=== PATIENT | male | born 1940 | race Asian ===

== ENCOUNTER 2021-10-28 08:29 | Outpatient (CLI) | payer MEDICARE, SELFPAY ==
--- NOTE | 2021-10-28 | EST_ITS ---
Patient Info Name: Martha Fermin Age: 81 years : 1940 Gender: Male Ht: 67 in Wt: 170 lbs BSA: 1.92 m2 Exam Date: 10/28/2021 11:07 AM Exam Location: [facility] Stress Patient Status: Outpatient Admit Date: 10/28/2021 Staff Ordering Physician: David Fermin MD Attending Provider: David Fermin MD Exercise Technologist: Eun Noble RDCS Exercise Physician: Sagar Vanessa DO Exam Type: CA stress trinity w NM Study Info Indications R07.9 - Chest pain, unspecified A regadenoson stress test was performed. Summary 1. 1. Negative lexiscan stress test for ischemic ST changes by ECG criteria. 2. 2. Baseline hypertension. 3. 3. Nuclear scan to follow and will be reported separately. Please correlate with it. 4. 4. Patient informed of the above results. Protocol: Lexiscan Stress ECG Details Stage: REST Duration (min): 1 min : 49 sec HR (bpm): 65 SBP (mmHg): 164 DBP (mmHg): 86 Stage: REST Duration (min): 14 min : 17 sec HR (bpm): 70 SBP (mmHg): 164 DBP (mmHg): 86 Stage: STAGE 1 Duration (min): 1 min : 0 sec HR (bpm): 85 SBP (mmHg): 158 DBP (mmHg): 58 Stage: RECOVERY Duration (min): 1 min : 0 sec HR (bpm): 84 SBP (mmHg): 119 DBP (mmHg): 55 Stage: RECOVERY Duration (min): 2 min : 0 sec HR (bpm): 69 SBP (mmHg): 119 DBP (mmHg): 55 Stage: RECOVERY Duration (min): 3 min : 0 sec HR (bpm): 81 SBP (mmHg): 104 DBP (mmHg): 57 Stage: RECOVERY Duration (min): 4 min : 0 sec HR (bpm): 92 SBP (mmHg): 104 DBP (mmHg): 57 Stage: RECOVERY Duration (min): 5 min : 0 sec HR (bpm): 83 SBP (mmHg): 124 DBP (mmHg): 62 Stage: RECOVERY Duration (min): 6 min : 0 sec HR (bpm): 94 SBP (mmHg): 124 DBP (mmHg): 62 Stage: RECOVERY Duration (min): 6 min : 16 sec HR (bpm): 92 SBP (mmHg): 135 DBP (mmHg): 69 Rest HR: 70 bpm Peak HR: 94 bpm Rest Sys BP: 164 mmHg Peak Sys BP: 158 mmHg Max Pred HR: 141 bpm % Max Pred HR: 67 % Target HR: 120 bpm Max RPP: 14,852 bpm*mmHg Termination Reason: Completed protocol Cardiac Symptoms: Stomach discomfort Total Time: 1 min : 0 sec Rest Dixon BP: 86 mmHg Peak Dixon BP: 58 mmHg Total Dose: 0.4 mg Resting ECG Sinus rhythm, borderline ST-T wave abnormality in anterolat/inf leads. Stress ECG No ST changes. Arrhythmias None. Report Signatures
--- NOTE | 2021-10-28 | ECHO_ITS ---
Patient Info Name: Martha Fermin Age: 81 years : 1940 Gender: Male Ht: 67 in Wt: 170 lbs BSA: 1.92 m2 HR: 76 bpm BP: 158 / 89 mmHg Technical Quality: Good Exam Date: 10/28/2021 9:23 AM Exam Location: [facility] Patient Status: Outpatient Admit Date: 10/28/2021 Staff Ordering Physician: David Fermin MD Audio Recording Engineer: Eric Gambino RDCS, RT Attending Provider: David Fermin MD Referring Physician: Zander COUGHLIN; Exam Type: CA echo doppler color flow Study Info Indications R07.9 - Chest pain, unspecified Complete two-dimensional, color flow and Doppler transthoracic echocardiogram is performed. Strain analysis performed. Summary 1. Complete two-dimensional, color flow and Doppler transthoracic echocardiogram is performed. 2. Left ventricular chamber dimension is normal. 3. Left ventricular systolic function is normal, estimated at 60-65%. 4. There is mildly increased left ventricular wall thickness. 5. The left ventricular diastolic function is grade I diastolic dysfunction. 6. E/e' 21 is elevated. 7. Global longitudinal strain is normal at -19.1%. 8. There is trace aortic valve regurgitation. 9. The mitral valve has mildly thickened leaflets. 10. There is trace mitral valve regurgitation. 11. There is mild to moderate tricuspid valve regurgitation. 12. Severe pulmonary hypertension, estimated pulmonary arterial systolic pressure is 61 mmHg. 13. There is mild pulmonic regurgitation. Left Ventricle E/e' 21 is elevated. Global longitudinal strain is normal at -19.1%. Left ventricular chamber dimension is normal. Left ventricular systolic function is normal, estimated at 60-65%. There is mildly increased left ventricular wall thickness. The left ventricular diastolic function is grade I diastolic dysfunction. Right Ventricle Right ventricular systolic function is normal and with normal TAPSE 2.1 cm. Right ventricular chamber dimension is normal. Left Atria Left atrial chamber dimension is normal. Right Atria Right atrial chamber dimension is normal. Aortic Valve The aortic valve is trileaflet. There is no aortic valve stenosis. There is trace aortic valve regurgitation. Pulmonic Valve There is mild pulmonic regurgitation. Mitral Valve The mitral valve has mildly thickened leaflets. There is no mitral valve stenosis. There is trace mitral valve regurgitation. Tricuspid Valve There is mild to moderate tricuspid valve regurgitation. Severe pulmonary hypertension, estimated pulmonary arterial systolic pressure is 61 mmHg. Pericardium/Pleural There is no pericardial effusion. Inferior Vena Cava Normal inferior vena cava with >50% collapse upon inspiration consistent with normal right atrial pressure, 5 mmHg. Aorta The aortic root size at the sinus of Valsalva is normal. Left Ventricular Outflow Tract Name Value Normal LVOT 2D LVOT Diameter 2.0 cm LVOT Doppler LVOT Peak Gradient 4 mmHg LVOT Mean Gradient 2 mmHg LVOT VTI 29 cm LVOT VTI/AV VTI Ratio
--- NOTE | ~2021-10-28 | XR_ITS ---
XR chest 2V 10/28/2021 10:05 Indication: Generalized chest pain Procedure: 2 views chest Comparison: No prior studies for comparison. Findings: Cardiomegaly. Bibasilar atelectasis. No focal pneumonia, edema, pleural effusion or pneumot horax. Impression: 1: Bibasilar atelectasis. 2: Cardiomegaly. Reviewed, dictated and finalized at location B. Impression: 1: Bibasilar atelectasis. 2: Cardiomegaly.
--- NOTE | ~2021-10-28 | NM_ITS ---
EXAMINATION: NM trinity stress w perfusion DATE: 10/28/2021 14:24 INDICATION: Chest pain TECHNIQUE: Rest images were obtained following intravenous administration of 10 mCi Tc99m tetrofosmin (Myoview). The patient was infused intravenously with Lexiscan (Regadenoson). Then, 30.8 mCi Tc99m t etrofosmin (Myoview) was administered intravenously, and stress images were obtained. Data was recons tructed into short axis and horizontal and vertical long axis SPECT images. Gated SPECT images were a lso obtained. COMPARISON: None. FINDINGS: There is a mild perfusion defect involving the apical lateral, mid anterolateral and mid in ferolateral segments on both stress and rest images consistent with infarct but which appears partial ly reversible on rest images consistent with superimposed ischemia in the apical lateral and mid ante rolateral segments. There is normal left ventricular chamber size, wall motion and ejection fraction . Left ventricular ejection fraction measures >70%. IMPRESSION: 1. 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 2. Left ventricular ejection fraction measuring %. Reviewed, dictated and finalized at location A. IMPRESSION: 1. 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 2. Left ventricular ejection fraction measuring %.
== END 2021-10-28 08:30 | disposition home or self-care (01) ==
LOC: ANHCARD 08:32
PROVIDERS: Visit Provider Emergency Medicine
DX: R07.9 Chest pain, unspecified (principal); I95.1 Orthostatic hypotension; J98.11 Atelectasis; I51.7 Cardiomegaly
CPT/HCPCS: 71046; 78452; 93017; 93306; A9502; J2785

== ENCOUNTER 2022-12-26 08:46 | Outpatient (CLI) | payer MEDICARE, SELFPAY ==
--- NOTE | 2022-12-26 | ECHO_ITS ---
Patient Info Name: Martha Fermin Age: 82 years : 1940 Gender: Male Ht: 67 in Wt: 167 lbs BSA: 1.91 m2 HR: 67 bpm BP: 132 / 67 mmHg Heart Rhythm: Sinus Rhythm Exam Date: 12/26/2022 9:37 AM Exam Location: [facility] Patient Status: Outpatient Admit Date: 12/26/2022 Staff Ordering Physician: Neema, Chelle Doran NP Bench Technician: Antonella Morejon RDCS Attending Provider: Neema, Chelle Doran NP Referring Physician: Neema WALSH; Exam Type: CA echo doppler color flow Study Info Indications R06.09 - Other forms of dyspnea Complete two-dimensional, color flow and Doppler transthoracic echocardiogram is performed. Summary 1. Complete two-dimensional, color flow and Doppler transthoracic echocardiogram is performed. 2. Left ventricular chamber dimension is normal. 3. Left ventricular systolic function is normal, estimated at 65-70%. 4. There is mildly increased left ventricular wall thickness. 5. The left ventricular diastolic function is grade I diastolic dysfunction. 6. Left atrial chamber dimension is mildly enlarged. 7. The mitral valve has thickened leaflets. 8. There is mild mitral valve regurgitation. 9. There is mild tricuspid valve regurgitation. 10. Moderate pulmonary hypertension, estimated pulmonary arterial systolic pressure is 46 mmHg. 11. There is mild pulmonic regurgitation. Left Ventricle Left ventricular chamber dimension is normal. Left ventricular systolic function is normal, estimated at 65-70%. There is mildly increased left ventricular wall thickness. The left ventricular diastolic function is grade I diastolic dysfunction. Right Ventricle Right ventricular chamber dimension is normal. Right ventricular systolic function is normal. Left Atria Left atrial chamber dimension is mildly enlarged. Right Atria Right atrial chamber dimension is normal. Atrial Septum Intact interatrial septum visualized by color flow imaging. Aortic Valve The aortic valve is trileaflet. There is mild aortic valve sclerosis. There is no aortic valve stenosis. There is trace aortic valve regurgitation. Pulmonic Valve The pulmonic valve is normal. There is no pulmonic valve stenosis. There is mild pulmonic regurgitation. Mitral Valve The mitral valve has thickened leaflets. There is no mitral valve stenosis. There is mild mitral valve regurgitation. Tricuspid Valve The tricuspid valve leaflets are normal. There is no significant tricuspid valve stenosis. There is mild tricuspid valve regurgitation. Moderate pulmonary hypertension, estimated pulmonary arterial systolic pressure is 46 mmHg. Pericardium/Pleural The pericardium appears normal. There is no pericardial effusion. Inferior Vena Cava Normal inferior vena cava with >50% collapse upon inspiration consistent with elevated right atrial pressure, 10 mmHg. Aorta The aortic root size at the sinus of Valsalva is normal. The prox ascending aorta size is normal. Left Ventricular Outflow Tract Name Value Normal LVOT 2D LVOT Diameter 1.8 cm LVOT Doppler LVOT Peak Gradient 6 mmHg LVOT Mean Gradient 3 mmHg LVOT VTI 31 cm
== END 2022-12-26 08:47 | disposition home or self-care (01) ==
PROVIDERS: Visit Provider Nurse Practitioner Adult Health
DX: R06.01 Orthopnea (principal); R06.00 Dyspnea, unspecified; I25.118 Atherosclerotic heart disease of native coronary artery with other forms of angina pectoris; I08.3 Combined rheumatic disorders of mitral, aortic and tricuspid valves
CPT/HCPCS: 93306

== ENCOUNTER 2022-12-27 08:53 | Outpatient (CLI) | payer MEDICARE, SELFPAY ==
--- NOTE | 2023-01-11 11:06 | WPDSLEEPSTUD ---
Sleep Study Date of Study: 12/27/22 Ordering Provider: David Fermin MD Interpreting Physician: Adrianne Gill MD Sleep Study Type: CPAP Titration Height: 1.7 m Weight: 75.75 kg Body Mass Index: 26.2 Neck Circumference (inches): 14.5 [place]: 3 Reason for Sleep Study Has central sleep apnea, using CPAP * 05/17/2019, home sleep test, severe apnea, large number of mixed and central apneas. Sleep History Zander Wolff is an 82-year-old man with central sleep apnea currently using CPAP. He has shortness of breath. He occasionally awakens from sleep feeling short of breath. He rarely awakens at night with heartburn, belching or coughing. He occasionally snores and occasionally it is loud enough that others complain about it. He rarely has trouble sleeping with a cold. He does not have breathing problems at night observed by others. He does not sweat excessively at night. He occasionally notices his heart pounding or beating irregularly at night. He occasionally falls asleep during the day, never falls asleep involuntarily or while driving. He does not have loss of muscle tone with strong emotion. He does not have daytime difficulties due to excessive sleepiness. He does not feel paralyzed on waking or falling asleep. He occasionally has vivid dreamlike scenes upon awakening or falling asleep. He does not feel afraid to go to sleep. He rarely has nightmares. He does not have dream recall. He rarely has racing thoughts. He does not feel sad or depressed. He does not have anxiety. He occasionally has muscular tension. He occasionally notices parts of his body jerking. He occasionally kicks at night. He rarely has crawling and aching feelings in his legs. He occasionally has leg pain during the night. He does not have morning jaw pain. He does not grind his teeth during sleep. He occasionally is bothered by pain during the day. He rarely wakes up feeling stiff in the morning with sore achy muscles. He occasionally wakes up with pain in the neck and spine. Normal bedtime is Between 10:00 p.m. and 11:00 p.m., falling asleep within 10-20 minutes. He will usually awaken between 4 and 5 times during the night. These occur in the middle of the night. It may take him 10-15 minutes to return to sleep. His wake-up time is between 6:00 a.m. and 7:00 a.m.. He keeps the same schedule on weekends. He estimates getting between 7 and 8 hours of sleep at night. He takes naps in the afternoon or evening. A short nap lasting 10 or 15 minutes may be refreshing. He feels better in the afternoon compared to other times of day. Habits: Never smoked tobacco. He does drink caffeine. No alcohol or recreational substances. [facility] Past Medical History Medical History (Updated 01/11/23 @ 11:33 by Adrianne Gill MD) Acid reflux Central sleep apnea Coronary artery disease Mixed hyperlipidemia Surgical History Surgical History (Updated 01/11/23 @ 11:15 by Adrianne Gill MD) History of back surgery History of knee replacement Family History Family History (Updated 01/11/23 @ 11:15 by Adrianne Gill MD) Father , Age 77 CHF (congestive heart failure) Social History Social History (Updated 01/11/23 @ 11:16 by Adrianne Gill MD) Smoking status: Never smoker Alcohol intake: never Substance use: never Medications Medications: from his office note12/21/2022 fludrocortisone 0.1 mg daily minocycline 100 mg q.12 h ipratropium bromide 42 mcg 0.06% nasal spray 2 sprays t.i.d. each nostril azelastine 0.15% 1 spray each nostril b.i.d. tadalafil 5 mg daily oxybutynin chloride 5 mg b.i.d. modafinil 100 mg daily Sleep Procedure This test was performed using the [employer] multiple channel system including EOG, EEG, submental EMG, EKG, nasal and oral airflow using thermistors and nasal pressure sensors, chest and abdominal belts for body position data, and pulse oximetry. Video monitoring
[2023-01-11 11:36] VITALS: BMI 26.2
== END 2022-12-28 07:51 | disposition home or self-care (01) ==
LOC: ANHCSM 08:54
PROVIDERS: Visit Provider Emergency Medicine
DX: G47.33 Obstructive sleep apnea (adult) (pediatric) (principal); G47.61 Periodic limb movement disorder; E78.5 Hyperlipidemia, unspecified; I25.10 Atherosclerotic heart disease of native coronary artery without angina pectoris
CPT/HCPCS: 95811

== ENCOUNTER 2023-02-10 10:00 | Inpatient (IN) | payer MEDICARE, SELFPAY ==
[2023-02-10] VITALS (20 sets, daily range): BP systolic 78–140; BP diastolic 33–72; PULSE 72–92; RESP 16–25; TEMP 36.3–37; O2SAT 95–100; BMI 26.7
--- NOTE | ~2023-02-10 | XR_ITS ---
Portable chest x-ray Comparison: 10/28/2021 Clinical History: Dizziness Findings: Lungs are clear, without focal consolidation or pleural effusion. Cardiomediastinal silho uette is stable. Bones and soft tissues are unremarkable. Impression: Clear lungs. Reviewed, dictated and finalized at location . Impression: Clear lungs.
--- NOTE | 2023-02-10 10:02 | ECG_ITS ---
Measurements Intervals [place] Rate: 89 P: 52 PA: 126 QRS: 33 QRSD: 78 T: 31 QT: 361 QTc: 440 Interpretive Statements SINUS RHYTHM WITH OCCASIONAL SUPRAVENTRICULAR PREMATURE COMPLEXES MODERATE VOLTAGE CRITERIA FOR LVH, NONSPECIFIC ST & T-WAVE ABNORMALITY ABNORMAL ECG NO PREVIOUS ECG AVAILABLE FOR COMPARISON Electronically Signed On 02-10-2023 17:13:41 CDT by Percy Longoria M.D.
--- NOTE | 2023-02-10 10:13 | PC.NURSE ---
Pt refused orthostats until getting a pillow.
--- NOTE | 2023-02-10 10:23 | ED.DIZZY ---
HPI - Dizziness General Chief Complaint: Dizziness Stated Complaint: dizzy/SOB Time Seen by Provider: 02/10/23 10:03 Source: patient, family and EMS Mode of arrival: EMS Limitations: no limitations History of Present Illness HPI Narrative: 82 years old male came to the emergency room from home by ambulance complaining of shortness of breath and low blood pressure started yesterday morning. Gets better laying down flat, worse with standing or walking. He denies any chest pain, fever, chills, nausea, vomiting, back pain or abdominal pain. History of sleep apnea currently on CPAP, coronary artery disease, hyperlipidemia, GERD his is telling me that patient occasionally falls asleep during the day Related Data Home Medications Medication Instructions Recorded Confirmed aspirin 81 mg tablet 81 mg PO DAILY 02/10/23 02/10/23 naproxen 500 mg tablet 500 mg PO BID 02/10/23 02/10/23 rosuvastatin 40 mg tablet 40 mg PO DAILY 02/10/23 02/10/23 tadalafil 5 mg tablet 5 mg PO DAILY 02/10/23 02/10/23 Allergies Allergy/AdvReac Type Severity Reaction Status Date / Time Penicillins Allergy Rash Verified 02/10/23 10:33 Review of Systems Review of Systems: All systems reviewed & are unremarkable except as noted in HPI and below PMFSH Past Medical History Medical History (Updated 02/10/23 @ 19:19 by Ruth Ann Clayton MD) Acid reflux Acute blood loss anemia Central sleep apnea Coronary artery disease Mixed hyperlipidemia NSAID long-term use Orthostatic hypotension Surgical History Surgical History (Updated 01/11/23 @ 11:15 by Adrianne Gill MD) History of back surgery History of knee replacement Family History Family History (Updated 01/11/23 @ 11:15 by Adrianne Gill MD) Father , Age 77 CHF (congestive heart failure) Social History Social History (Updated 01/11/23 @ 11:16 by Adrianne Gill MD) Smoking status: Never smoker Alcohol intake: never Substance use: never Lack of Transportation: No Lack of Food: Never True Current Housing: I Have Housing Concerned About Future Housing: No Difficulty Paying Gas/Electric Bills: No Difficulty Paying for Meds: No Currently Unemployed: No Education: Decline to Answer Difficulty w/ Childcare or Family Care: No Spiritual care concerns: No Exam Narrative: General appearance: Well-developed, well-nourished Skin: Pale Head: Normocephalic, nontraumatic Eyes: Clear conjunctiva ENT: Oropharynx normal, ears normal, nose normal Neck: Supple, nontender Chest and respiratory: Airway patent, no respiratory distress, no accessory muscle use Heart: Regular rate/rhythm Abdomen: Soft, nontender, no organomegaly, quiet bowel sounds, rectal exam showed no stool in the rectal pouch, guaiac positive, no hemorrhoids, no mass or tenderness Vascular: Normal peripheral pulses, normal capillary refill. 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 Chau, agreed with the admission, will see the patient Monday. Date: 02/10/23 Consultation #2: Dr eden Antonio is the son of the patient, is telling me that patient hemoglobin on December 22 was 13.8. Patient is not on anticoagulant medication and currently on baby aspirin once a day. Patient used to be on naproxen for chronic back pain but has not taken it for a while. Date: 02/10/23 Vital Signs Vital signs: Vital Signs Temperature 36.6 C 02/10/23 10:06 Pulse Rate 81 02/10/23 10:06 Respiratory Rate 20 02/10/23 10:06 Blood Pressure 94/68 L 02/10/23 10:06 Pulse O
[2023-02-10] MEDS: SODIUM CHLORIDE 0.9% IV 2,300 ML/1,000 ML BAG 999 ML IV CONT ×3 (10:39→12:37)
[2023-02-10 11:11] LABS: Basophils Percent Auto 0.5 % (0.2-1.2); Eosinophils Percent Auto 0.7 % (0-4.4); Hematocrit 23.5 % (42.0-52.0); Hemoglobin 7.5 g/dL (14.0-18.0); Immature Granulocyte Absolute 0.01 K/mm3 (0.00-0.031); Immature Granulocyte Percent A 0.2 % (0-0.5); Lymphocytes Percent Auto 20.2 % (18.3-44.2); Mean Corpuscular HGB Conc 31.9 g/dl (32-36); Mean Corpuscular Hemoglobin 30.2 pg (26-34); Mean Corpuscular Volume 94.8 fl (80-100); Mean Platelet Volume 10.6 fl (7.4-10.4); Monocytes Absolute Auto 0.6 K/mm3 (0.1-0.6); Monocytes Percent Auto 9.3 % (2.6-8.5); Neutrophils Absolute Auto 4.1 K/mm3 (1.3-6.7); Neutrophils Percent Auto 69.1 % (45.5-73.1); Platelet Count Result 134 k/mm3 (150-375); Red Blood Count 2.48 M/mm3 (4.6-6.20); Red Cell Distribution Width 12.3 % (11.5-14.5); White Blood Count 5.9 K/mm3 (4.5-10.0)
[2023-02-10 11:21] LABS: Alanine Aminotransferase 24 U/L (6-50); Albumin Level 2.7 g/dL (3.5-5.1); Alkaline Phosphatase 45 U/L (38-126); Anion Gap 4 mmol/L (8-16); Aspartate Amino Transferase 29 U/L (17-59); Bilirubin,Total 0.6 mg/dL (0.2-1.3); Blood Urea Nitrogen 55 mg/dL (9-20); Calcium 7.2 mg/dL (8.4-10.2); Carbon Dioxide 24 mmol/L (22-30); Chloride 106 mmol/L (98-107); Estimated CRCL calculation 60 ml/min; Estimated Glomerular Filt Rate > 60; Glucose 99 mg/dL (65-110); INR 1.2; Lipase 53 U/L (23-300); Potassium 3.6 mmol/L (3.4-5.0); Sodium 134 mmol/L (137-145)
[2023-02-10 11:23] LABS: CRP < 0.5 mg/dL (<1.0)
[2023-02-10 11:32] LABS: Troponin I < 0.012 ng/mL (0.000-0.034)
[2023-02-10 11:39] LABS: Lactic Acid Reflex 1.6 mmol/L (0.7-2.0)
--- NOTE | 2023-02-10 12:00 | PC.NURSE ---
pt made aware of needing urine specimen. urinal at bedside. pt reports he will try and go.
[2023-02-10 12:14] LABS: Add Urine Microscopic? YES; Appearance Urine Clear (Clear); Bacteria Urine None Seen /hpf; Bilirubin Urine Negative (Negative); Blood Urine 1+ (Negative); Color Urine Yellow (Yellow); Glucose Urine UA Negative (Negative); Ketones Urine Negative (Negative); Leukocyte Esterase Ur Negative LEU/UL (Negative); Nitrate Urine Negative (Negative); Non Pathogenic Casts 0-2; Protein Urine Trace mg/dL (Negative); RBC Urine 0-2 /hpf (0-2); Specific Grav Ur 1.014 (1.001-1.035); Squamous Epithelial Cell Urine None seen /hpf (Few); Urobilinogen Urine 0.2 mg/dL (<2.0); WBC Urine 0-5 /hpf; pH Urine 5.5 (5.0-9.0)
[2023-02-10 13:03] LABS: Hematocrit 23.7 % (42.0-52.0); Hemoglobin 7.7 g/dL (14.0-18.0)
[2023-02-10] MEDS: PANTOPRAZOLE SODIUM IV 40 MG VIAL IV PUSH ×2 (13:04→20:01)
[2023-02-10 13:24] LABS: Troponin I < 0.012 ng/mL (0.000-0.034)
--- NOTE | 2023-02-10 13:50 | ADMGEN ---
This patient, Martha Fermin, was admitted to Medical Room 349-01. Patient/family oriented to hospital policies and general routines including ID bracelet, bed and alarms, visiting hours, pain management, procedures, bathroom and other care routines, personal items, smoking policy, room service/diet, and visiting hours. Information on how to activate the Rapid Response Team has been discussed. Patient/Family are encouraged to report perceived risks to care and to ask questions if they do not understand what they are told or what they should do.
[2023-02-10] MEDS: SODIUM CHLORIDE 0.9% IV 250 ML 30 ML IV CONT (14:21)
--- NOTE | 2023-02-10 14:29 | WPDGICN ---
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) use of non-steroidal anti-inflammatories (NSAID) Status: Acute Assessment and Plan: discontinue (3) Orthostatic hypotension: Code(s): I95.1 - Orthostatic hypotension Status: Acute Assessment and Plan: monitor ivf and protonix (4) Coronary artery disease: Code(s): I25.10 - Atherosclerotic heart disease of [place] coronary artery without angina pectoris Status: Acute GI Consult Note Consult date/time: 02/10/23 14:29 Reason for consult: symptomatic anemia HPI: Martha Fermin is a 82 year old male with history of HTN, CAD and knee/back pain for which has been taking naproxen daily for long time. He came to hospital with progressive shortness of breath on exertion, also dizziness upon standing and feeling lightheaded, his SBP was in the low side. Hgb 7.5, bun 55, creat 0.8. He never had egd, had colonoscopy probably more than 5 years ago. Denies obvious bleeding, no melena, no nausea. Review of Systems Constitutional: Constitutional: Reports fatigue and Reports lethargy Eyes: Eyes: Denies blurry vision ENT: Reports Normal hearing present Cardiovascular: Cardiovascular: Denies chest pain Respiratory: Respiratory: Reports dyspnea on exertion Gastrointestinal: Gastrointestinal: Denies nausea Genitourinary: Genitourinary: Denies urinary frequency Musculoskeletal: Musculoskeletal: Reports arthralgias Integumentary/Breasts: Skin/Breast: Denies rash Neurologic: Denies Abnormal speech present Psychiatric: Psychiatric: Denies behavioral changes [facility] Past Medical History Medical History (Updated 02/10/23 @ 14:33 by Efraín Luis MD) Acid reflux Acute blood loss anemia Central sleep apnea Coronary artery disease Mixed hyperlipidemia NSAID long-term use Orthostatic hypotension Surgical History Surgical History (Updated 01/11/23 @ 11:15 by Adrianne Gill MD) History of back surgery History of knee replacement Family History Family History (Updated 01/11/23 @ 11:15 by Adrianne Gill MD) Father , Age 77 CHF (congestive heart failure) Social History Social History (Updated 01/11/23 @ 11:16 by Adrianne Gill MD) Smoking status: Never smoker Alcohol intake: never Substance use: never Lack of Transportation: No Lack of Food: Never True Current Housing: I Have Housing Concerned About Future Housing: No Difficulty Paying Gas/Electric Bills: No Difficulty Paying for Meds: No Currently Unemployed: No Education: Decline to Answer Difficulty w/ Childcare or Family Care: No Spiritual care concerns: No Meds Home Medications and Allergies Home Medications Medication Instructions Recorded Confirmed Type aspirin 81 mg tablet 81 mg PO DAILY 02/10/23 02/10/23 History naproxen 500 mg tablet 500 mg PO BID 02/10/23 02/10/23 History rosuvastatin 40 mg tablet 40 mg PO DAILY 02/10/23 02/10/23 History tadalafil 5 mg tablet 5 mg PO DAILY 02/10/23 02/10/23 History Allergies Allergy/AdvReac Type Severity Reaction Status Date / Time Penicillins Allergy Rash Verified 02/10/23 10:33 Vital Signs Vital Signs - 24 hr 02/10/23 10:06 02/10/23 10:19 02/10/23 10:20 Temperature 97.8 F Pulse Rate 81 73 90 Respiratory Rate 20 Blood Pressure 94/68 L 103/48 L 94/70 L Pulse Oximetry 99 Oxygen Delivery Room Air 02/10/23 10:20 02/10/23 11:26 02/10/23 11:31 Temperature Pulse Rate 92 78 81 Respiratory Rate 25 H 17 Blood Pressure 78/47 L 122/49 L 114/46 L Pulse Oximetry 99 9
--- NOTE | 2023-02-10 17:46 | PM.IMHP ---
H&P: HPI History of Present Illness Date/Time: 02/10/23 17:46 Chief Complaint: Dizziness and shortness of breath. Narrative: This is an 82-year-old male patient who came to the emergency room with complaints of shortness of breath and low blood pressure. According to the the patient does have a history of having low blood pressure. The is at the bedside answering was the questions for me. The patient was feeling better whenever he would lay flat and worse with standing or walking. The patient also complained of some dizziness. He denies any chest pain fever chills nausea vomiting. Patient has chronic neck and back pain. He has a history of sleep apnea anemia. The patient does have a history obstructive sleep apnea and according to the he has been sleeping quite frequently some days all day. The stated that the patient has been having dark stools. The patient does have severe arthritis and body aches and he does take naproxen. His H&H was 7.5 and 23.5 upon admission. Repeat H&H was 10.7 and 23.7. GI has been consulted. The patient was ordered pantoprazole IV fluids and give a blood transfusion. Patient received 1 unit packed red blood cells. The plan is for EGD and colonoscopy on Monday. Chest x-ray was read as clear lungs clear. The patient is being admitted to inpatient status on the date of service of 02/10/2023. Review of Systems Review of Systems: All systems reviewed & are unremarkable except as noted in HPI and below Constitutional: Constitutional: Reports as per HPI and Reports no additional constitutional complaints Eyes: Eyes: Reports as per HPI and Reports no additional eye complaints ENT: Reports system reviewed and no additional complaints, except as documented and Reports Normal hearing present Cardiovascular: Cardiovascular: Reports no additional cardiovascular complaints Respiratory: Respiratory: Reports no additional respiratory complaints and Reports no additional respiratory complaints Gastrointestinal: Gastrointestinal: Reports as per HPI and Reports no additional gastrointestinal complaints Musculoskeletal: Musculoskeletal: Reports no additional musculoskeletal complaints Integumentary/Breasts: Skin/Breast: Reports system reviewed and no additional complaints, except as docu and Reports as per HPI Neurologic: Reports system reviewed and no additional complaints, except as documented, Reports as per HPI and Reports Normal hearing present Psychiatric: Psychiatric: Reports no additional psychiatric complaints and Reports as per HPI Endocrine: Endocrine: Reports no additional endocrine complaints Hematologic/Lymphatic: Hematologic/Lymphatic: Reports no additional hematologic/lymphatic complaints Allergic/Immunologic: Allergic/Immunologic: Reports no additional allergic/immunologic complaints PMFSH Past Medical History Medical History Acid reflux Acute blood loss anemia Central sleep apnea Coronary artery disease Mixed hyperlipidemia NSAID long-term use Orthostatic hypotension Surgical History Surgical History (Updated 02/10/23 @ 23:55 by Monica Nuñez NP) H/O cervical spine surgery History of back surgery History of knee replacement Family History Family History Father , Age 77 CHF (congestive heart failure) Social History Social History (Updated 02/10/23 @ 23:56 by Monica Nuñez NP) Social History: The patient lives with his and he has 1 son. 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 The patient is a lifelong nonsmoker. His is the durable power banking attorney for healthcare. Code status full code Smoking status: Never smoker Alcohol intake: never Substance use: never Lack of Transportation: No Lack of Food: Never True Current Housing: I Have Housing Concerned About Future Housing: No Difficulty Paying Gas/Electric
[2023-02-10] MEDS: SODIUM CHLORIDE 0.9% IV 1,000 ML 125 ML IV CONT (18:51)
[2023-02-10] MEDS: ACETAMINOPHEN 325 MG TABLET 650 MG PO (20:03)
[2023-02-10 20:34] LABS: Hematocrit 28.5 % (42.0-52.0)
[2023-02-11] VITALS (14 sets, daily range): BP systolic 94–117; BP diastolic 38–48; PULSE 67–91; RESP 16–20; TEMP 36.4–36.8; O2SAT 96–100
[2023-02-11 01:31] LABS: Hematocrit 25.6 % (42.0-52.0); Hemoglobin 8.4 g/dL (14.0-18.0)
[2023-02-11] MEDS: SODIUM CHLORIDE 0.9% IV 1,000 ML 125 ML IV CONT ×2 (03:05→20:44)
[2023-02-11] MEDS: ALBUTEROL SULFATE NEB 2.5 MG/3 ML INH INHALATION (03:33)
[2023-02-11 05:23] LABS: Basophils Percent Auto 0.4 % (0.2-1.2); Eosinophils Absolute Auto 0.1 K/mm3 (0-0.3); Eosinophils Percent Auto 1.4 % (0-4.4); Hematocrit 26.1 % (42.0-52.0); Hemoglobin 8.5 g/dL (14.0-18.0); Immature Granulocyte Absolute 0.01 K/mm3 (0.00-0.031); Immature Granulocyte Percent A 0.2 % (0-0.5); Lymphocytes Absolute Auto 1.19 K/mm3 (0.9-3.2); Lymphocytes Percent Auto 24.4 % (18.3-44.2); Mean Corpuscular HGB Conc 32.6 g/dl (32-36); Mean Corpuscular Hemoglobin 30.8 pg (26-34); Mean Corpuscular Volume 94.6 fl (80-100); Monocytes Absolute Auto 0.5 K/mm3 (0.1-0.6); Neutrophils Absolute Auto 3.1 K/mm3 (1.3-6.7); Neutrophils Percent Auto 63.6 % (45.5-73.1); Platelet Count Result 129 k/mm3 (150-375); Red Blood Count 2.76 M/mm3 (4.6-6.20); Red Cell Distribution Width 12.7 % (11.5-14.5); White Blood Count 4.9 K/mm3 (4.5-10.0)
[2023-02-11 05:35] LABS: Alanine Aminotransferase 28 U/L (6-50); Albumin Level 2.9 g/dL (3.5-5.1); Alkaline Phosphatase 46 U/L (38-126); Anion Gap 6 mmol/L (8-16); Aspartate Amino Transferase 41 U/L (17-59); Bilirubin,Total 1.1 mg/dL (0.2-1.3); Blood Urea Nitrogen 32 mg/dL (9-20); Calcium 7.4 mg/dL (8.4-10.2); Carbon Dioxide 21 mmol/L (22-30); Chloride 111 mmol/L (98-107); Estimated CRCL calculation 60 ml/min; Estimated Glomerular Filt Rate > 60; Glucose 99 mg/dL (65-110); Magnesium 2.1 mg/dL (1.6-2.3); Potassium 3.7 mmol/L (3.4-5.0); Sodium 138 mmol/L (137-145)
[2023-02-11] MEDS: PANTOPRAZOLE SODIUM IV 40 MG VIAL IV PUSH ×2 (08:31→20:30)
[2023-02-11] MEDS: ROSUVASTATIN 10 MG TABLET 40 MG PO (08:31)
[2023-02-11 12:00] LABS: Hematocrit 26.2 % (42.0-52.0); Hemoglobin 8.7 g/dL (14.0-18.0)
--- NOTE | 2023-02-11 13:00 | PM.IMPN ---
Progress Note: A&P Assessment and Plan (1) GI bleed: Qualifiers: GI bleed type/associated pathology: unspecified gastrointestinal hemorrhage type Qualified Code(s): K92.2 - Gastrointestinal hemorrhage, unspecified Code(s): K92.2 - Gastrointestinal hemorrhage, unspecified Status: Acute Assessment and Plan: -H&H every 6 hours. Pt has received 1 unit of pRBC this admission. Re-transfuse if Hgb < 7 g/dl -GI consulted. Plan for EGD and colonoscopy Monday. -Patient is constipated. last BM was three days ago. He said his stool was normal at the time. Will give stool softener/laxative. -Protonix 40 mg IVP BID -Avoid NSAIDs (2) Anemia: Qualifiers: Anemia type: unspecified type Qualified Code(s): D64.9 - Anemia, unspecified Code(s): D64.9 - Anemia, unspecified Status: Acute Assessment and Plan: No previous labs for comparison. H&H every 6 hours. - says his hemoglobin at his last office visit in December was 13. (3) Coronary artery disease: Code(s): I25.10 - Atherosclerotic heart disease of [place] coronary artery without angina pectoris Status: Acute Assessment and Plan: The patient has had a stress test in the past. And has been on an aspirin. Hold off on aspirin at this time -continue rosuvastatin (4) Orthostatic hypotension: Code(s): I95.1 - Orthostatic hypotension Status: Acute Assessment and Plan: Continue with orthostatic blood pressures every shift. (5) Obstructive sleep apnea: Code(s): G47.33 - Obstructive sleep apnea (adult) (pediatric) Status: Acute Assessment and Plan: Continue with CPAP machine. Subjective Date/time seen: 02/11/23 13:00 Interval history: This is an 82-year-old male patient who came to the emergency room with complaints of shortness of breath and low blood pressure.? According to the the patient does have a history of having low blood pressure.? The is at the bedside answering was the questions for me.? The patient was feeling better whenever he would lay flat and worse with standing or walking.? The patient also complained of some dizziness.? He denies any chest pain fever chills nausea vomiting.? Patient has chronic neck and back pain.? He has a history of sleep apnea anemia.? The patient does have a history obstructive sleep apnea and according to the he has been sleeping quite frequently some days all day.? The stated that the patient has been having dark stools.? The patient does have severe arthritis and body aches and he does take naproxen.? His H&H was 7.5 and 23.5 upon admission.? Repeat H&H was 10.7 and 23.7.? GI has been consulted.? The patient was ordered pantoprazole IV fluids and give a blood transfusion.? Patient received 1 unit packed red blood cells.? The plan is for EGD and colonoscopy on Monday.? Chest x-ray was read as clear lungs clear.? The patient is being admitted to inpatient status on the date of service of 02/10/2023. 02/11: Patient is seen today resting in bed with his at the bedside. He says that he has been feeling dizzy when sitting up so he prefers to lay down. His blood pressures have been soft but MAPs continue to be greater than 65. Hgb is stable at 8.7. He denies h/a, SOB, CP, N/V/D. He says that he has been constipated for three days and needs to use the restroom. He says that normal stool softeners usually don't work for him. Will write for a low dose of lactulose x 1. He also reports chronic issues with urination including impaired emptying, frequency, and dribbling. He is ready to go home because he does not like this hospital bed. I reviewed with him the prep for EGD and colonoscopy and hopes that he might be discharged Monday after his procedure assuming all testing is negative. Review of Systems Review of Systems: All systems reviewed & are unremarkable except as noted in HPI and below Exam Narrative: General: pale, wel
[2023-02-11] MEDS: LACTULOSE 20 GM/30 ML UDC 10 GM PO (13:52)
[2023-02-12] VITALS (16 sets, daily range): BP systolic 72–144; BP diastolic 36–60; PULSE 68–88; RESP 16–18; TEMP 36.6–36.8; O2SAT 97–99
[2023-02-12 05:39] LABS: Basophils Percent Auto 0.5 % (0.2-1.2); Eosinophils Absolute Auto 0.1 K/mm3 (0-0.3); Eosinophils Percent Auto 1.8 % (0-4.4); Hematocrit 28.1 % (42.0-52.0); Hemoglobin 8.5 g/dL (14.0-18.0); Immature Granulocyte Absolute 0.02 K/mm3 (0.00-0.031); Immature Granulocyte Percent A 0.5 % (0-0.5); Lymphocytes Absolute Auto 0.96 K/mm3 (0.9-3.2); Lymphocytes Percent Auto 21.8 % (18.3-44.2); Mean Corpuscular HGB Conc 30.2 g/dl (32-36); Mean Corpuscular Hemoglobin 30.2 pg (26-34); Mean Platelet Volume 10.6 fl (7.4-10.4); Monocytes Absolute Auto 0.5 K/mm3 (0.1-0.6); Monocytes Percent Auto 10.4 % (2.6-8.5); Neutrophils Absolute Auto 2.9 K/mm3 (1.3-6.7); Platelet Count Result 151 k/mm3 (150-375); Red Blood Count 2.81 M/mm3 (4.6-6.20); Red Cell Distribution Width 12.7 % (11.5-14.5); White Blood Count 4.4 K/mm3 (4.5-10.0)
[2023-02-12 05:48] LABS: INR 1.1; Prothrombin Time 15.1 Seconds (11.1-14.7)
[2023-02-12 05:49] LABS: Partial Thromboplastin Time 28.2 SECONDS (22.3-36.8)
[2023-02-12 05:55] LABS: Alanine Aminotransferase 41 U/L (6-50); Albumin Level 2.8 g/dL (3.5-5.1); Alkaline Phosphatase 34 U/L (38-126); Anion Gap 3 mmol/L (8-16); Aspartate Amino Transferase 56 U/L (17-59); Blood Urea Nitrogen 17 mg/dL (9-20); Calcium 7.5 mg/dL (8.4-10.2); Carbon Dioxide 24 mmol/L (22-30); Chloride 107 mmol/L (98-107); Estimated CRCL calculation 60 ml/min; Estimated Glomerular Filt Rate > 60; Glucose 101 mg/dL (65-110); Magnesium 2.2 mg/dL (1.6-2.3); Potassium 3.8 mmol/L (3.4-5.0); Sodium 134 mmol/L (137-145)
[2023-02-12] MEDS: PANTOPRAZOLE SODIUM IV 40 MG VIAL IV PUSH ×2 (08:17→21:44)
[2023-02-12] MEDS: SODIUM CHLORIDE 0.9% IV 1,000 ML 125 ML IV CONT (08:17)
[2023-02-12] MEDS: ROSUVASTATIN 10 MG TABLET 40 MG PO (08:18)
--- NOTE | 2023-02-12 09:32 | PM.IMPN ---
Progress Note: A&P Assessment and Plan (1) GI bleed: Qualifiers: GI bleed type/associated pathology: unspecified gastrointestinal hemorrhage type Qualified Code(s): K92.2 - Gastrointestinal hemorrhage, unspecified Code(s): K92.2 - Gastrointestinal hemorrhage, unspecified Status: Acute Assessment and Plan: -H&H daily now as hgb has been stable. Pt has received 1 unit of pRBC this admission. Re-transfuse if Hgb < 7 g/dl -GI consulted. Plan for EGD and colonoscopy Monday. -Patient is constipated. last BM was three days ago. He said his stool was normal at the time. Will give stool softener/laxative. -Protonix 40 mg IVP BID -Avoid NSAIDs (2) Anemia: Qualifiers: Anemia type: unspecified type Qualified Code(s): D64.9 - Anemia, unspecified Code(s): D64.9 - Anemia, unspecified Status: Acute Assessment and Plan: No previous labs for comparison. hgb stable - says his hemoglobin at his last office visit in December was 13. (3) Coronary artery disease: Code(s): I25.10 - Atherosclerotic heart disease of [place] coronary artery without angina pectoris Status: Acute Assessment and Plan: The patient has had a stress test in the past. And has been on an aspirin. Hold off on aspirin at this time -continue rosuvastatin (4) Orthostatic hypotension: Code(s): I95.1 - Orthostatic hypotension Status: Acute Assessment and Plan: Continue with orthostatic blood pressures every shift. Blood pressures continue to be soft 90-100/40's. Patient had some dizziness yesterday after eating breakfast but it improved with rest. He is not tachycardic. His Hgb remains stable. (5) Obstructive sleep apnea: Code(s): G47.33 - Obstructive sleep apnea (adult) (pediatric) Status: Acute Assessment and Plan: Continue with CPAP machine. Subjective Date/time seen: 02/12/23 09:32 Interval history: This is an 82-year-old male patient who came to the emergency room with complaints of shortness of breath and low blood pressure.? According to the the patient does have a history of having low blood pressure.? The is at the bedside answering was the questions for me.? The patient was feeling better whenever he would lay flat and worse with standing or walking.? The patient also complained of some dizziness.? He denies any chest pain fever chills nausea vomiting.? Patient has chronic neck and back pain.? He has a history of sleep apnea anemia.? The patient does have a history obstructive sleep apnea and according to the he has been sleeping quite frequently some days all day.? The stated that the patient has been having dark stools.? The patient does have severe arthritis and body aches and he does take naproxen.? His H&H was 7.5 and 23.5 upon admission.? Repeat H&H was 10.7 and 23.7.? GI has been consulted.? The patient was ordered pantoprazole IV fluids and give a blood transfusion.? Patient received 1 unit packed red blood cells.? The plan is for EGD and colonoscopy on Monday.? Chest x-ray was read as clear lungs clear.? The patient is being admitted to inpatient status on the date of service of 02/10/2023. 02/11: Patient is seen today resting in bed with his at the bedside. He says that he has been feeling dizzy when sitting up so he prefers to lay down. His blood pressures have been soft but MAPs continue to be greater than 65. Hgb is stable at 8.7. He denies h/a, SOB, CP, N/V/D. He says that he has been constipated for three days and needs to use the restroom. He says that normal stool softeners usually don't work for him. Will write for a low dose of lactulose x 1. He also reports chronic issues with urination including impaired emptying, frequency, and dribbling. He is ready to go home because he does not like this hospital bed. I reviewed with him the prep for EGD and colonoscopy and hopes that he might be discharged Monday after his procedure
[2023-02-12] MEDS: BISACODYL 5 MG TABLET EC 20 MG PO (19:03)
[2023-02-12] MEDS: polyethylene glycoL 3350 238 GM BOTTLE PO (19:03)
[2023-02-12 23:17] LABS: Hematocrit 27.6 % (42.0-52.0)
[2023-02-13] VITALS (18 sets, daily range): BP systolic 89–162; BP diastolic 41–82; PULSE 67–88; RESP 18–27; TEMP 36.4–37.4; O2SAT 96–100
[2023-02-13] MEDS: SODIUM CHLORIDE 0.9% IV 1,000 ML 125 ML IV CONT ×2 (00:09→09:23)
[2023-02-13 06:04] LABS: Basophils Percent Auto 0.2 % (0.2-1.2); Eosinophils Absolute Auto 0.1 K/mm3 (0-0.3); Eosinophils Percent Auto 1.7 % (0-4.4); Hematocrit 26.9 % (42.0-52.0); Hemoglobin 8.7 g/dL (14.0-18.0); Immature Granulocyte Absolute 0.02 K/mm3 (0.00-0.031); Immature Granulocyte Percent A 0.4 % (0-0.5); Lymphocytes Absolute Auto 0.94 K/mm3 (0.9-3.2); Lymphocytes Percent Auto 20.1 % (18.3-44.2); Mean Corpuscular HGB Conc 32.3 g/dl (32-36); Mean Corpuscular Hemoglobin 30.5 pg (26-34); Mean Corpuscular Volume 94.4 fl (80-100); Mean Platelet Volume 9.9 fl (7.4-10.4); Monocytes Absolute Auto 0.5 K/mm3 (0.1-0.6); Monocytes Percent Auto 10.5 % (2.6-8.5); Neutrophils Absolute Auto 3.1 K/mm3 (1.3-6.7); Neutrophils Percent Auto 67.1 % (45.5-73.1); Platelet Count Result 149 k/mm3 (150-375); Red Blood Count 2.85 M/mm3 (4.6-6.20); Red Cell Distribution Width 12.5 % (11.5-14.5); White Blood Count 4.7 K/mm3 (4.5-10.0)
[2023-02-13 06:22] LABS: Alanine Aminotransferase 46 U/L (6-50); Alkaline Phosphatase 54 U/L (38-126); Anion Gap 1 mmol/L (8-16); Aspartate Amino Transferase 51 U/L (17-59); Bilirubin,Total 0.8 mg/dL (0.2-1.3); Blood Urea Nitrogen 11 mg/dL (9-20); Calcium 7.6 mg/dL (8.4-10.2); Carbon Dioxide 26 mmol/L (22-30); Chloride 108 mmol/L (98-107); Estimated CRCL calculation 60 ml/min; Estimated Glomerular Filt Rate > 60; Glucose 110 mg/dL (65-110); Potassium 3.5 mmol/L (3.4-5.0); Sodium 135 mmol/L (137-145)
[2023-02-13 06:23] LABS: INR 1.1; Partial Thromboplastin Time 32.2 SECONDS (22.3-36.8); Prothrombin Time 14.9 Seconds (11.1-14.7)
[2023-02-13] MEDS: PANTOPRAZOLE SODIUM IV 40 MG VIAL IV PUSH (09:28)
--- NOTE | 2023-02-13 12:57 | PC.NURSE ---
Pt to GI lab @[id number]. at bedside
[2023-02-13] MEDS: LACTATED RINGERS 1,000 ML 150 ML IV CONT (13:06)
--- NOTE | 2023-02-13 13:14 | WPDANESEPPF ---
Anes - Initial Pre Proc Eval Procedure: Operation Date: 02/13/23 13:30 Proposed Procedures p Esophagogastroduodenoscopy & Colonoscopy - Efraín Luis MD Date/Time: 02/13/23 13:14 Surgeon: Linsey Lawson DO Pre Op Diagnosis: GI Bleed/Anemia/Hypotension Patient Data Age: 82 Gender: M Height: 1.7 m Weight: 77.4 kg Last Vital Signs Temp 97.6 F 02/13/23 13:08 Pulse 74 02/13/23 13:08 Resp 18 02/13/23 13:08 BP 144/51 H 02/13/23 13:08 Pulse Ox 98 02/13/23 13:08 O2 Del Method Room Air 02/13/23 13:08 Allergies Allergy/AdvReac Type Severity Reaction Status Date / Time Penicillins Allergy Rash Verified 02/13/23 13:07 Home Medications Medication Instructions Recorded Confirmed Type aspirin 81 mg tablet 81 mg PO DAILY 02/10/23 02/10/23 History naproxen 500 mg tablet 500 mg PO BID 02/10/23 02/10/23 History rosuvastatin 40 mg tablet 40 mg PO DAILY 02/10/23 02/10/23 History tadalafil 5 mg tablet 5 mg PO DAILY 02/10/23 02/10/23 History Laboratory Tests 02/10/23 02/12/23 02/13/23 11:59 23:12 05:55 WBC 4.7 K/mm3 (4.5-10.0) RBC 2.85 L M/mm3 (4.6-6.20) Hgb 9.0 L g/dL 8.7 L g/dL (14.0-18.0) (14.0-18.0) Hct 27.6 L % 26.9 L % (42.0-52.0) (42.0-52.0) MCV 94.4 D fl (80-100) MCH 30.5 pg (26-34) MCHC 32.3 g/dl (32-36) RDW 12.5 % (11.5-14.5) Plt Count 149 L k/mm3 (150-375) MPV 9.9 fl (7.4-10.4) Immature Gran % (Auto) 0.4 % (0-0.5) Neut % (Auto) 67.1 % (45.5-73.1) Lymph % (Auto) 20.1 % (18.3-44.2) [place] % (Auto) 10.5 H % (2.6-8.5) Eos % (Auto) 1.7 % (0-4.4) Baso % (Auto) 0.2 % (0.2-1.2) Lymph # (Auto) 0.94 K/mm3 (0.9-3.2) [place] # (Auto) 0.5 K/mm3 (0.1-0.6) Eos # (Auto) 0.1 K/mm3 (0-0.3) Baso # (Auto) 0.0 K/mm3 (0.0-0.1) Abs Immat Gran (auto) 0.02 K/mm3 (0.00-0.031) Absolute Neuts (auto) 3.1 K/mm3 (1.3-6.7) Absolute Nucleated RBC 0.0 K/mm3 (0.0-0.012) Nucleated RBC % 0.0 % (0.0-0.2) PT 14.9 H Seconds (11.1-14.7) INR 1.1 APTT 32.2 SECONDS (22.3-36.8) Sodium 135 L mmol/L (137-145) Potassium 3.5 mmol/L (3.4-5.0) Chloride 108 H mmol/L (98-107) Carbon Dioxide 26 mmol/L (22-30) Anion Gap 1 L mmol/L (8-16) BUN 11 D mg/dL (9-20) Creatinine 0.80 mg/dL (0.7-1.3) Estim Creat Clear Calc 60 ml/min Estimated GFR > 60 (59 - ) Glucose 110 mg/dL (65-110) Calcium 7.6 L mg/dL (8.4-10.2) Total Bilirubin 0.8 mg/dL (0.2-1.3) AST 51 U/L (17-59) ALT 46 U/L (6-50) Alkaline Phosphatase 54 U/L (38-126) Total Protein 5.0 L g/dL (6.3-8.2) Albumin 3.0 L g/dL (3.5-5.1) Crossmatch See Detail Patient hx anesthesia problems: none Family hx anesthesia problems: none Results Review: All pre-operative results and documents have been reviewed as part of the pre-operative evaluation. [facility] Past Medical History Medical History Acid reflux Acute blood loss anemia Central sleep apnea Coronary artery disease Mixed hyperlipidemia NSAID long-term use Orthostatic hypotension Surgical History Surgical History (Updated 02/10/23 @ 23:55 by Monica Nuñez NP) H/O cervical spine surgery History of back surgery History of knee replacement Family History Family History Father , Age 77 CHF (congestive heart failure) Social History Social History (Updated 02/10/23 @ 23:56 by Monica Nuñez NP) Social History: The patient lives with his and he has 1 so
--- NOTE | 2023-02-13 13:31 | SUR.OPER ---
EGD end: 1326 COLONSCOPY START 1337
--- NOTE | 2023-02-13 14:06 | SUR.PHASEII ---
report called to floor NurseEulalia.
--- NOTE | 2023-02-13 14:22 | PM.IMPN ---
Progress Note: A&P Assessment and Plan (1) GI bleed: Qualifiers: GI bleed type/associated pathology: unspecified gastrointestinal hemorrhage type Qualified Code(s): K92.2 - Gastrointestinal hemorrhage, unspecified Code(s): K92.2 - Gastrointestinal hemorrhage, unspecified Status: Acute Assessment and Plan: -H&H daily now as hgb has been stable. Pt has received 1 unit of pRBC this admission. Re-transfuse if Hgb < 7 g/dl -GI consulted. Plan for EGD and colonoscopy Monday. -bowel prep completed. Black stools per patient. -Protonix 40 mg IVP BID -Avoid NSAIDs (2) Anemia: Qualifiers: Anemia type: unspecified type Qualified Code(s): D64.9 - Anemia, unspecified Code(s): D64.9 - Anemia, unspecified Status: Acute Assessment and Plan: No previous labs for comparison. hgb stable - says his hemoglobin at his last office visit in December was 13. (3) Coronary artery disease: Code(s): I25.10 - Atherosclerotic heart disease of [place] coronary artery without angina pectoris Status: Acute Assessment and Plan: The patient has had a stress test in the past. And has been on an aspirin. Hold off on aspirin at this time -continue rosuvastatin (4) Orthostatic hypotension: Code(s): I95.1 - Orthostatic hypotension Status: Acute Assessment and Plan: Continue with orthostatic blood pressures every shift. Blood pressures continue to be soft 90-100/40's. Patient had some dizziness yesterday after eating breakfast but it improved with rest. He is not tachycardic. His Hgb remains stable. (5) Obstructive sleep apnea: Code(s): G47.33 - Obstructive sleep apnea (adult) (pediatric) Status: Acute Assessment and Plan: Continue with CPAP machine. Subjective Date/time seen: 02/13/23 14:22 Interval history: This is an 82-year-old male patient who came to the emergency room with complaints of shortness of breath and low blood pressure.? According to the the patient does have a history of having low blood pressure.? The is at the bedside answering was the questions for me.? The patient was feeling better whenever he would lay flat and worse with standing or walking.? The patient also complained of some dizziness.? He denies any chest pain fever chills nausea vomiting.? Patient has chronic neck and back pain.? He has a history of sleep apnea anemia.? The patient does have a history obstructive sleep apnea and according to the he has been sleeping quite frequently some days all day.? The stated that the patient has been having dark stools.? The patient does have severe arthritis and body aches and he does take naproxen.? His H&H was 7.5 and 23.5 upon admission.? Repeat H&H was 10.7 and 23.7.? GI has been consulted.? The patient was ordered pantoprazole IV fluids and give a blood transfusion.? Patient received 1 unit packed red blood cells.? The plan is for EGD and colonoscopy on Monday.? Chest x-ray was read as clear lungs clear.? The patient is being admitted to inpatient status on the date of service of 02/10/2023. 02/11: Patient is seen today resting in bed with his at the bedside. He says that he has been feeling dizzy when sitting up so he prefers to lay down. His blood pressures have been soft but MAPs continue to be greater than 65. Hgb is stable at 8.7. He denies h/a, SOB, CP, N/V/D. He says that he has been constipated for three days and needs to use the restroom. He says that normal stool softeners usually don't work for him. Will write for a low dose of lactulose x 1. He also reports chronic issues with urination including impaired emptying, frequency, and dribbling. He is ready to go home because he does not like this hospital bed. I reviewed with him the prep for EGD and colonoscopy and hopes that he might be discharged Monday after his procedure assuming all testing is negative. 02/12: patient seen today resting in bed, s
--- NOTE | 2023-02-13 18:06 | PC.NURSE ---
Pt and verbally refused to continue IV therapy with Normal Saline. Pt states he is feeling better and does not need anymore fluids at this time. Pt is eating and drinking PO.
[2023-02-13] MEDS: PANTOPRAZOLE 40 MG TABLET PO (20:47)
[2023-02-14] VITALS: PULSE 74
[2023-02-14 04:00] VITALS: PULSE 81
[2023-02-14 05:46] LABS: Basophils Percent Auto 0.3 % (0.2-1.2); Eosinophils Absolute Auto 0.1 K/mm3 (0-0.3); Eosinophils Percent Auto 1.3 % (0-4.4); Hematocrit 27.1 % (42.0-52.0); Hemoglobin 8.8 g/dL (14.0-18.0); Immature Granulocyte Absolute 0.02 K/mm3 (0.00-0.031); Immature Granulocyte Percent A 0.3 % (0-0.5); Lymphocytes Absolute Auto 1.06 K/mm3 (0.9-3.2); Lymphocytes Percent Auto 15.3 % (18.3-44.2); Mean Corpuscular HGB Conc 32.5 g/dl (32-36); Mean Corpuscular Hemoglobin 30.8 pg (26-34); Mean Corpuscular Volume 94.8 fl (80-100); Mean Platelet Volume 10.3 fl (7.4-10.4); Monocytes Absolute Auto 0.6 K/mm3 (0.1-0.6); Monocytes Percent Auto 8.1 % (2.6-8.5); Neutrophils Absolute Auto 5.2 K/mm3 (1.3-6.7); Neutrophils Percent Auto 74.7 % (45.5-73.1); Platelet Count Result 169 k/mm3 (150-375); Red Blood Count 2.86 M/mm3 (4.6-6.20); Red Cell Distribution Width 12.6 % (11.5-14.5); White Blood Count 6.9 K/mm3 (4.5-10.0)
[2023-02-14 05:56] LABS: Anion Gap 2 mmol/L (8-16); Blood Urea Nitrogen 10 mg/dL (9-20); Calcium 7.9 mg/dL (8.4-10.2); Carbon Dioxide 29 mmol/L (22-30); Chloride 102 mmol/L (98-107); Estimated CRCL calculation 60 ml/min; Estimated Glomerular Filt Rate > 60; Glucose 105 mg/dL (65-110); Potassium 3.5 mmol/L (3.4-5.0); Sodium 133 mmol/L (137-145)
[2023-02-14 06:00] VITALS: BP 120/62; PULSE 79; RESP 20; TEMP 36.7; O2SAT 95
[2023-02-14 08:00] VITALS: PULSE 92
[2023-02-14] MEDS: PANTOPRAZOLE 40 MG TABLET PO (09:21)
[2023-02-14] MEDS: ROSUVASTATIN 10 MG TABLET 40 MG PO (09:21)
--- NOTE | 2023-02-14 09:30 | PM.DS ---
DS: Admitting Diagnosis Discharge Date February 14 Admitting Diagnosis anemia DS: Discharge Diagnosis Discharge Diagnosis (1) GI bleed: Qualifiers: GI bleed type/associated pathology: unspecified gastrointestinal hemorrhage type Qualified Code(s): K92.2 - Gastrointestinal hemorrhage, unspecified Code(s): K92.2 - Gastrointestinal hemorrhage, unspecified Status: Acute Assessment and Plan: -H&H daily now as hgb has been stable. Pt has received 1 unit of pRBC this admission. Re-transfuse if Hgb < 7 g/dl -GI consulted. Plan for EGD and colonoscopy Monday. -bowel prep completed. Black stools per patient. -Protonix 40 mg IVP BID -Avoid NSAIDs (2) Anemia: Qualifiers: Anemia type: unspecified type Qualified Code(s): D64.9 - Anemia, unspecified Code(s): D64.9 - Anemia, unspecified Status: Acute Assessment and Plan: No previous labs for comparison. hgb stable - says his hemoglobin at his last office visit in December was 13. (3) Coronary artery disease: Code(s): I25.10 - Atherosclerotic heart disease of [place] coronary artery without angina pectoris Status: Acute Assessment and Plan: The patient has had a stress test in the past. And has been on an aspirin. Hold off on aspirin at this time -continue rosuvastatin (4) Orthostatic hypotension: Code(s): I95.1 - Orthostatic hypotension Status: Acute Assessment and Plan: Continue with orthostatic blood pressures every shift. Blood pressures continue to be soft 90-100/40's. Patient had some dizziness yesterday after eating breakfast but it improved with rest. He is not tachycardic. His Hgb remains stable. (5) Obstructive sleep apnea: Code(s): G47.33 - Obstructive sleep apnea (adult) (pediatric) Status: Acute Assessment and Plan: Continue with CPAP machine. DS: Summary Hospital Course Reason for hospitalization: anemia, GI bleed Hospital Course: This is an 82-year-old male patient who came to the emergency room with complaints of shortness of breath and low blood pressure.? According to the the patient does have a history of having low blood pressure.? The is at the bedside answering was the questions for me.? The patient was feeling better whenever he would lay flat and worse with standing or walking.? The patient also complained of some dizziness.? He denies any chest pain fever chills nausea vomiting.? Patient has chronic neck and back pain.? He has a history of sleep apnea anemia.? The patient does have a history obstructive sleep apnea and according to the he has been sleeping quite frequently some days all day.? The stated that the patient has been having dark stools.? The patient does have severe arthritis and body aches and he does take naproxen.? His H&H was 7.5 and 23.5 upon admission.? Repeat H&H was 10.7 and 23.7.? GI has been consulted.? The patient was ordered pantoprazole IV fluids and give a blood transfusion.? Patient received 1 unit packed red blood cells.? The plan is for EGD and colonoscopy on Monday.? Chest x-ray was read as clear lungs clear.? The patient is being admitted to inpatient status on the date of service of 02/10/2023. 02/11: Patient is seen today resting in bed with his at the bedside. He says that he has been feeling dizzy when sitting up so he prefers to lay down. His blood pressures have been soft but MAPs continue to be greater than 65. Hgb is stable at 8.7. He denies h/a, SOB, CP, N/V/D. He says that he has been constipated for three days and needs to use the restroom. He says that normal stool softeners usually don't work for him. Will write for a low dose of lactulose x 1. He also reports chronic issues with urination including impaired emptying, frequency, and dribbling. He is ready to go home because he does not like this hospital bed. I reviewed with him the prep for EGD and colonoscopy and hopes that he amira
[2023-02-14 09:41] VITALS: BP 102/60
[2023-02-14 12:00] VITALS: PULSE 97
== END 2023-02-14 13:45 | disposition home or self-care (01) | DRG 378 ==
LOC: ANHED 10:24 → ANH3MED 13:19
PROVIDERS: Internal Medicine Gastroenterology; Nurse Practitioner; Physician Assistant; Admitting Provider Student in an Organized Health Care Education/Training Program; Emergency Provider Emergency Medicine; PCP Emergency Medicine; Visit Provider Nurse Practitioner Acute Care
PROC: 0DJ08ZZ Inspection of Upper Intestinal Tract, Via Natural or Artificial Opening Endoscopic (ICD-10-PCS; CPT 43235; principal; 2023-02-13 13:30)
DX: K92.2 Gastrointestinal hemorrhage, unspecified (principal); D62 Acute posthemorrhagic anemia; I25.10 Atherosclerotic heart disease of native coronary artery without angina pectoris; I95.1 Orthostatic hypotension; K29.70 Gastritis, unspecified, without bleeding; K63.5 Polyp of colon; E78.5 Hyperlipidemia, unspecified; M19.90 Unspecified osteoarthritis, unspecified site; K21.9 Gastro-esophageal reflux disease without esophagitis; G47.30 Sleep apnea, unspecified; Z96.659 Presence of unspecified artificial knee joint; Z79.82 Long term (current) use of aspirin; Z79.1 Long term (current) use of non-steroidal anti-inflammatories (NSAID)
CPT/HCPCS: 36415; 36430; 71045; 80048; 80053; 81001; 83605; 83690; 83735; 84443; 84484; 85014; 85018; 85025; 85610; 85730; 86140; 86850; 86900; 86901; 86923; 87040; 87081; 88305; 93005; 94640; 96360; 96361; 99285; A9270; C9113; J2704; J7030; J7050; J7120; P9016

== ENCOUNTER 2023-02-20 11:06 | Outpatient (NON) | payer MEDICARE, SELFPAY ==
[2023-02-20 12:27] LABS: Iron 45 ug/dL (49-181)
[2023-02-20 12:40] LABS: Basophils Percent Auto 0.7 % (0.2-1.2); Eosinophils Absolute Auto 0.1 K/mm3 (0-0.3); Eosinophils Percent Auto 2.1 % (0-4.4); Hematocrit 28.9 % (42.0-52.0); Hemoglobin 8.9 g/dL (14.0-18.0); Immature Granulocyte Absolute 0.01 K/mm3 (0.00-0.031); Immature Granulocyte Percent A 0.2 % (0-0.5); Lymphocytes Percent Auto 16.8 % (18.3-44.2); Mean Corpuscular HGB Conc 30.8 g/dl (32-36); Mean Corpuscular Hemoglobin 30.4 pg (26-34); Mean Corpuscular Volume 98.6 fl (80-100); Mean Platelet Volume 10.4 fl (7.4-10.4); Monocytes Absolute Auto 0.5 K/mm3 (0.1-0.6); Monocytes Percent Auto 9.5 % (2.6-8.5); Neutrophils Absolute Auto 3.8 K/mm3 (1.3-6.7); Neutrophils Percent Auto 70.7 % (45.5-73.1); Percent Iron Saturation 14 % (20-50); Platelet Count Result 237 k/mm3 (150-375); Red Blood Count 2.93 M/mm3 (4.6-6.20); Red Cell Distribution Width 13.4 % (11.5-14.5); White Blood Count 5.4 K/mm3 (4.5-10.0)
== END 2023-02-20 11:07 | disposition home or self-care (01) ==
LOC: HOME HLTH 11:08
PROVIDERS: PCP Emergency Medicine; Visit Provider Emergency Medicine
DX: D50.9 Iron deficiency anemia, unspecified (principal)
CPT/HCPCS: 82728; 83540; 83550; 85025

== ENCOUNTER 2024-03-31 21:52 | Emergency (ER) | payer MEDICARE, SELFPAY ==
--- NOTE | ~2024-03-31 | CT_ITS ---
EXAMINATION: CTA brain carotid DATE: 03/31/2024 23:54 INDICATION: Dizziness. Confusion. TECHNIQUE: Computed tomographic angiography (CTA) of the head was performed without and with 100 mL O mnipaque-350 intravenous contrast. CTA of the neck was performed with intravenous contrast. Automated exposure control and iterative reconstruction technique were employed. The dose-length product was 1 673.37 mGy-cm. Maximum intensity projection and volume rendered 3D-reconstructions were created by clara rose technologist on a separate workstation. COMPARISON: None. FINDINGS: HEAD CTA: There is no intracranial hemorrhage, acute infarction, or abnormal intracranial mass lesion . There are scattered areas of low attenuation in the cerebral white matter, which is within normal l imits for the patient's age. The ventricles are normal in size. The orbits are normal. There is mild mucosal thickening in the paranasal sinuses. The mastoid air cells are normal. Left vertebral artery is dominant. There is no significant stenosis of basilar artery or the posterior cerebral arteries. T here is no significant stenosis of the intracranial internal carotid arteries or anterior or middle c erebral arteries. Anterior communicating artery is normal. The posterior communicating arteries are n ormal. There is no aneurysm. NECK CTA: There is mild scarring at the lung apices. There is a 12 mm nodule in left thyroid lobe, li ronald not clinically significant. There are no pathologically enlarged lymph nodes. There is mild sten osis of proximal left vertebral artery. There is plaque in the proximal internal carotid arteries. Th ere is 0% stenosis of the proximal right internal carotid artery relative to normal distal artery lum en diameter (NASCET criteria). There is 0% stenosis of the proximal left internal carotid artery rela tive to normal distal artery lumen diameter. There is mild cervical spondylosis. 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 There is a sclerotic lesion in C6 vertebral body, likely a benig n bone island. There is moderate cervical spondylosis. IMPRESSION: 1. Normal aging brain. 2. No aneurysm or significant intracranial arterial stenosis. 3. 0% stenosis of the proximal internal carotid arteries relative to normal distal artery lumen diame ters (NASCET criteria). Reviewed, dictated and finalized at location A. IMPRESSION: 1. Normal aging brain. 2. No aneurysm or significant intracranial arterial stenosis. 3. 0% stenosis of the proximal internal carotid arteries relative to normal dis carol artery lumen diameters (NASCET criteria).
--- NOTE | ~2024-03-31 | CT_ITS ---
EXAMINATION: CT abdomen pelvis w con DATE: 03/31/2024 23:54 INDICATION: Right abdominal pain. TECHNIQUE: Computed tomography (CT) of the abdomen and pelvis was performed with 100 mL Omnipaque 350 intravenous contrast. Automated exposure control and iterative reconstruction technique were employe d. The dose-length product was 740.63 mGy-cm. COMPARISON: None. FINDINGS: The visualized portions of the lung bases demonstrate mild atelectasis. No pleural effusion . Cardiomegaly is noted. No pericardial effusion. The liver, gallbladder, spleen, pancreas, and adren al glands are normal. There is cortical thinning of the kidneys. There is a 5 mm cyst in left kidney. There are no dilated loops of bowel. The appendix is not visualized. There is calcified atherosclero sis of the aorta and many of the other arteries. There are changes of anterior fusion procedures at L 4-L5 and L5-S1. There is moderate lumbar spondylosis. IMPRESSION: 1. No specific etiology for the patient's symptoms. Reviewed, dictated and finalized at location A.
--- NOTE | ~2024-03-31 | XR_ITS ---
EXAMINATION: XR chest 1V DATE: 04/01/2024 00:02 INDICATION: Dizziness. TECHNIQUE: A single frontal view of the chest was obtained. COMPARISON: Chest single view 02/10/2023, CT abdomen and pelvis 03/31/2024 FINDINGS: There is mild atelectasis in the lower lung zones. No pleural effusion or pneumothorax. Car diomegaly is noted. There are prominent pericardial fat pads. IMPRESSION: 1. Mild atelectasis in the lower lung zones. 2. Cardiomegaly. Reviewed, dictated and finalized at location A.
[2024-03-31 21:53] VITALS: BP 146/66; PULSE 73; RESP 16; TEMP 36.7; O2SAT 97
--- NOTE | 2024-03-31 21:56 | ECG_ITS ---
Test Date: 2024-03-31 21:58:54 Measurements Intervals [place] Rate: 59 P: 25 TX: 140 QRS: 26 QRSD: 72 T: 132 QT: 437 QTc: 433 Interpretive Statements SINUS BRADYCARDIA WITH SINUS ARRHYTHMIA ST DEVIATION AND MODERATE T-WAVE ABNORMALITY, CONSIDER LATERAL ISCHEMIA [-0.1+ mV T WAVE IN I/aVL/V5/V6] ABNORMAL ECG No previous ECG available for comparison Electronically Signed On 04-01-2024 10:58:17 CDT by Morgan Duarte M.D.
[2024-03-31 22:11] LABS: Basophils Percent Auto 0.4 % (0.2-1.2); Eosinophils Absolute Auto 0.1 K/mm3 (0-0.3); Eosinophils Percent Auto 1.9 % (0-4.4); Hemoglobin 14.8 g/dL (14.0-18.0); Immature Granulocyte Absolute 0.01 K/mm3 (0.00-0.031); Immature Granulocyte Percent A 0.2 % (0-0.5); Lymphocytes Absolute Auto 1.26 K/mm3 (0.9-3.2); Lymphocytes Percent Auto 26.4 % (18.3-44.2); Mean Corpuscular HGB Conc 33.6 g/dl (32-36); Mean Corpuscular Hemoglobin 30.5 pg (26-34); Mean Corpuscular Volume 90.7 fl (80-100); Mean Platelet Volume 9.5 fl (7.4-10.4); Monocytes Absolute Auto 0.6 K/mm3 (0.1-0.6); Monocytes Percent Auto 11.9 % (2.6-8.5); Neutrophils Absolute Auto 2.8 K/mm3 (1.3-6.7); Neutrophils Percent Auto 59.2 % (45.5-73.1); Platelet Count Result 172 k/mm3 (150-375); Red Blood Count 4.85 M/mm3 (4.6-6.20); Red Cell Distribution Width 12.3 % (11.5-14.5); White Blood Count 4.8 K/mm3 (4.5-10.0)
[2024-03-31 22:22] LABS: Alanine Aminotransferase 26 U/L (6-50); Albumin Level 4.1 g/dL (3.5-5.1); Alkaline Phosphatase 67 U/L (38-126); Anion Gap 7 mmol/L (4-12); Aspartate Amino Transferase 30 U/L (17-59); Bilirubin,Total 1.5 mg/dL (0.2-1.3); Blood Urea Nitrogen 21 mg/dL (9-20); Calcium 8.7 mg/dL (8.4-10.2); Carbon Dioxide 29 mmol/L (22-30); Chloride 97 mmol/L (98-107); Estimated Glomerular Filt Rate > 60; Glucose 102 mg/dL (65-110); Potassium 4.2 mmol/L (3.4-5.0); Sodium 133 mmol/L (137-145)
[2024-03-31 22:23] LABS: Prothrombin Time 13.5 Seconds (11.1-14.7)
[2024-03-31 22:24] LABS: Partial Thromboplastin Time 32.8 Seconds (22.3-36.8)
[2024-03-31 22:29] VITALS: PULSE 68; RESP 17; O2SAT 98
[2024-03-31 22:34] VITALS: BP 156/75; PULSE 61; RESP 26; TEMP 36.7; O2SAT 97
[2024-03-31 22:35] VITALS: O2SAT 97
[2024-03-31 23:01] VITALS: BP 133/61; PULSE 63; RESP 20; TEMP 36.6; O2SAT 98
[2024-03-31 23:51] LABS: Prothrombin Time 13.7 Seconds (11.1-14.7)
[2024-03-31 23:52] LABS: Partial Thromboplastin Time 33.5 Seconds (22.3-36.8)
[2024-03-31 23:53] LABS: Lactic Acid Reflex 0.7 mmol/L (0.7-2.0); Lipase 105 U/L (23-300); Magnesium 2.1 mg/dL (1.6-2.3); Phosphorus 3.8 mg/dL (2.5-4.5)
[2024-04-01 00:06] LABS: NT Pro B Type Natriuretic Pept 90 pg/mL (19.9-100); Troponin I < 0.012 ng/mL (0.000-0.034)
[2024-04-01 00:15] LABS: Influenza A QL RT-PCR Negative (Negative); Influenza B QL RT-PCR Negative (Negative); RSV RNA, RT-PCR Negative (Negative); SARS-CoV-2 RNA PCR Negative (Negative)
[2024-04-01 00:22] LABS: Add Urine Microscopic? NO; Appearance Urine Clear (Clear); Bilirubin Urine Negative (Negative); Blood Urine Negative (Negative); Color Urine Yellow (Yellow); Glucose Urine UA Negative (Negative); Ketones Urine Negative (Negative); Leukocyte Esterase Ur Negative LEU/UL (Negative); Nitrate Urine Negative (Negative); Protein Urine Negative (Negative); Specific Grav Ur 1.032 (1.001-1.035); Urobilinogen Urine 0.2 mg/dL (<2.0); pH Urine 6.5 (5.0-9.0)
[2024-04-01] MEDS: SODIUM CHLORIDE 0.9% IV 1,000 ML 999 ML IV CONT (00:30)
[2024-04-01 00:34] VITALS: BP 157/80; PULSE 74; RESP 20; TEMP 36.6; O2SAT 97
--- NOTE | 2024-04-01 01:54 | ED.GENADULT ---
HPI - General Adult General Chief complaint: Altered Mental Status Stated complaint: confusion/fatigued/dizzy Time Seen by Provider: 03/31/24 22:42 History of Present Illness HPI narrative: This is an 83-year-old male presenting ED with chief complaint of dizziness. Patient says when he is standing up he is becoming dizzy and lightheaded. He also feels more confused than usual. Feels like not enough blood is getting to his head. Patient says that he frequently becomes dizzy when he stands up but it does not usually last this long. Patient's notes that he is not eating very well. The patient de santiago give a reason for why he is not eating. no nausea/vomiting/diarrhea. Patient denies diplopia, dysarthria or dysphagia. No falls. He says he does have occasional right-sided abdominal pain although he is not currently having it. No fevers chills chest pain difficulty breathing or urinary symptoms. Patient is requesting a CTA of his head and neck. Related Data Home Medications Medication Instructions Recorded Confirmed aspirin 81 mg tablet 81 mg PO DAILY 02/10/23 02/10/23 naproxen 500 mg tablet 500 mg PO BID 02/10/23 02/10/23 rosuvastatin 40 mg tablet 40 mg PO DAILY 02/10/23 02/10/23 tadalafil 5 mg tablet 5 mg PO DAILY 02/10/23 02/10/23 Allergies Allergy/AdvReac Type Severity Reaction Status Date / Time Penicillins Allergy Rash Verified 03/31/24 21:57 PMFSH Past Medical History Medical History Acid reflux Acute blood loss anemia Central sleep apnea Coronary artery disease Mixed hyperlipidemia NSAID long-term use Orthostatic hypotension Surgical History Surgical History H/O cervical spine surgery History of back surgery History of knee replacement Family History Family History Father , Age 77 CHF (congestive heart failure) Social History Social History Social History: The patient lives with his and he has 1 son. 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 The patient is a lifelong nonsmoker. His is the durable power immigration attorney for healthcare. Code status full code Smoking status: Never smoker Alcohol intake: never Substance use: never Lack of Transportation: No Lack of Food: Never True Current Housing: I Have Housing Concerned About Future Housing: No Difficulty Paying Gas/Electric Bills: No Difficulty Paying for Meds: No Currently Unemployed: No Education: Decline to Answer Difficulty w/ Childcare or Family Care: No Spiritual care concerns: No Exam Narrative: APPEARANCE: No apparent distress. Head: atraumatic. EYES: EOMI, NOSE: Atraumatic NECK: Trachea midline RESPIRATORY: No increased rate of breathing clear to auscultation CARDIOVASCULAR: RRR, no peripheral edema ABDOMINAL: Non-distended soft nontender no guarding rebound MUSCULOSKELETAl: No obvious deformities NEURO: Alert. Cranial nerves 2-12 grossly intact. Sensation light touch, motor function cerebellar function intact for 4 extremities. SKIN:: Warm, dry. Normal color PSYCHIATRIC: Normal affect Course Vital Signs Vital signs: Vital Signs Temperature 98.1 F 03/31/24 21:53 Pulse Rate 73 03/31/24 21:53 Respiratory Rate 16 03/31/24 21:53 Blood Pressure 146/66 H 03/31/24 21:53 Pulse Oximetry 97 03/31/24 21:53 Oxygen Delivery Room Air 03/31/24 21:53 Temperature 98 F 04/01/24 00:34 Pulse Rate 74 04/01/24 00:34 Respiratory Rate 20 04/01/24 00:34 Blood Pressure 157/80 H 04/01/24 00:34 Pulse Oximetry 97 04/01/24 00:34 Oxygen Delivery Room Air 03/31/24 22:35 Medical Decision Making [facility] Narrative Medical decision making narrative: -Course: 83-year-old male presenting with dizziness. Patient is here with his son who is a fa
[2024-04-01 02:00] VITALS: BP 147/75; PULSE 76; RESP 17; TEMP 36.6; O2SAT 100
--- NOTE | 2024-04-01 02:10 | ECG_ITS ---
Test Date: 2024-04-01 02:45:19 Measurements Intervals [place] Rate: 69 P: 41 KS: 151 QRS: 45 QRSD: 82 T: 151 QT: 427 QTc: 459 Interpretive Statements SINUS RHYTHM ST DEVIATION AND MODERATE T-WAVE ABNORMALITY, CONSIDER LATERAL ISCHEMIA [-0.1+ mV T WAVE IN I/aVL/V5/V6] ABNORMAL ECG Electronically Signed On 04-01-2024 11:00:06 CDT by Morgan Duarte M.D.
[2024-04-01 02:34] LABS: Troponin I < 0.012 ng/mL (0.000-0.034)
[2024-04-01 03:00] VITALS: PULSE 78; RESP 17
== END 2024-04-01 03:25 | disposition home or self-care (01) ==
PROVIDERS: Emergency Provider Emergency Medicine; PCP Emergency Medicine
DX: R42 Dizziness and giddiness (principal); I25.10 Atherosclerotic heart disease of native coronary artery without angina pectoris; I95.1 Orthostatic hypotension; E78.2 Mixed hyperlipidemia; K21.9 Gastro-esophageal reflux disease without esophagitis; Z96.659 Presence of unspecified artificial knee joint; Z79.82 Long term (current) use of aspirin; Z79.899 Other long term (current) drug therapy; R00.1 Bradycardia, unspecified; R94.31 Abnormal electrocardiogram [ECG] [EKG]; I51.7 Cardiomegaly
CPT/HCPCS: 36415; 70496; 70498; 71045; 74177; 80053; 81003; 83605; 83690; 83735; 83880; 84100; 84443; 84484; 85025; 85610; 85730; 87040; 87637; 93005; 99284; J7030; Q9967

== ENCOUNTER 2024-04-24 09:18 | Outpatient (CLI) | payer MEDICARE, SELFPAY ==
--- NOTE | 2024-04-24 | ECHO_ITS ---
Patient Info Name: Martha Fermin Age: 84 years : 1940 Gender: Male Ht: 67 in Wt: 167 lbs BSA: 1.91 m2 HR: 71 bpm BP: 136 / 71 mmHg Heart Rhythm: Sinus Rhythm Technical Quality: Fair Exam Date: 04/24/2024 9:50 AM Exam Location: Echo Lab Patient Status: Outpatient Admit Date: 04/24/2024 Staff Ordering Physician: David Fermin MD International Logistics Analyst: Jan Ulrich RDCS Attending Provider: David Fermin MD Referring Physician: Zander COUGHLIN; Exam Type: CA echo doppler color flow Study Info Indications I27.0 - Primary pulmonary hypertension Complete two-dimensional, color flow and Doppler transthoracic echocardiogram is performed. Summary 1. Left ventricular chamber dimension is normal. 2. Left ventricular systolic function is normal, estimated at 65-70%. 3. The left ventricular diastolic function is grade I diastolic dysfunction. 4. Right ventricular systolic function is normal. 5. Left atrial chamber dimension is moderately enlarged. 6. Right atrial chamber dimension is mildly enlarged. 7. There is mild mitral valve regurgitation. 8. There is mild tricuspid valve regurgitation. 9. There is mild pulmonic regurgitation. 10. Mild pulmonary hypertension, estimated pulmonary arterial systolic pressure is 42 mmHg. Left Ventricle Left ventricular chamber dimension is normal. Left ventricular systolic function is normal, estimated at 65-70%. There is no increased left ventricular wall thickness. The left ventricular diastolic function is grade I diastolic dysfunction. Right Ventricle Right ventricular chamber dimension is normal. Right ventricular systolic function is normal. Left Atria Left atrial chamber dimension is moderately enlarged. Right Atria Right atrial chamber dimension is mildly enlarged. Atrial Septum Intact interatrial septum visualized by color flow imaging. Aortic Valve The aortic valve is trileaflet. There is no aortic valve stenosis. There is trace aortic valve regurgitation. There is mild aortic valve calcification. Pulmonic Valve The pulmonic valve is not well visualized. There is mild pulmonic regurgitation. Mitral Valve There is mild mitral valve regurgitation. The mitral valve annulus is mildly calcified. Tricuspid Valve There is mild tricuspid valve regurgitation. Mild pulmonary hypertension, estimated pulmonary arterial systolic pressure is 42 mmHg. Pericardium/Pleural There is no pericardial effusion. Inferior Vena Cava Normal inferior vena cava with >50% collapse upon inspiration consistent with normal right atrial pressure, 3 mmHg. Aorta The aortic root size at the sinus of Valsalva is normal. Left Ventricular Outflow Tract Name Value Normal LVOT 2D LVOT Diameter 2.0 cm LVOT Doppler LVOT Peak Gradient 7 mmHg LVOT Mean Gradient 3 mmHg LVOT VTI 31 cm LVOT VTI/AV VTI Ratio 0.8 LVOT Stroke Volume 99 ml LVOT CO 5.4 l/min LVOT CI 2.9 l/min/m2 Pulmonic Valve Name
== END 2024-04-24 09:19 | disposition home or self-care (01) ==
LOC: ANHCARD 09:20
PROVIDERS: PCP Emergency Medicine; Visit Provider Emergency Medicine
DX: I27.0 Primary pulmonary hypertension (principal); I34.0 Nonrheumatic mitral (valve) insufficiency; I07.1 Rheumatic tricuspid insufficiency; I37.1 Nonrheumatic pulmonary valve insufficiency
CPT/HCPCS: 93306